=== PATIENT | male | born 1955 | race African-American/Black ===

== ENCOUNTER → 2017-06-05 | Outpatient (CLI) | payer BC ==
--- NOTE | 2017-06-05 13:38 | KCIC ---
MR of the left knee Indication: Medial left knee pain. Pain in recent months. Technique: The standard multiplanar sequences are obtained. Findings: Medial meniscus: Small tear at the posterior horn of the medial meniscus. Lateral meniscus: Minimal blunting and signal at the body of the lateral meniscus, but no convincing evidence of a lateral meniscal tear. Anterior cruciate ligament: Intact Posterior cruciate ligament: Intact Medial collateral ligament: Intact. Iliotibial band: Intact. Lateral collateral ligament: Intact Posterolateral corner: No internal derangement identified. Extensor mechanism: Intact. Fluid: Small joint effusion. 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 -medial compartment:Intact -lateral compartment: Mild chondromalacia at the posterior lateral tibial plateau. Bones: No significant lesion or acute fracture. Soft tissue: Partially visualized fatty mass within the sartorius muscle, measures 2.1 cm transverse by greater than 3.3 cm cephalocaudal, extending superiorly beyond the [id number] of the study. There are a few internal soft tissue septal likely muscle fibers. As visualized, this is compatible with lipoma. There is mild fluid and edema at the lower aspect of the mass. Impression: 1. Medial meniscal tear. 2. Subtle lateral meniscal signal but no convincing tear identified. 3. 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 4. Partially visualized soft tissue mass in the distal sartorius muscle, most likely a lipoma. Small amount of edema and fluid at its lower aspect may be reactive to the mass. This extends superiorly beyond the [id number], depending on the level of clinical concern for larger mass, MR of the thigh could fully evaluate. Electronically signed by: Bryan Agrawal MD (06/05/2017 1:35 PM) [id number]
== END | disposition home or self-care (01) ==
LOC: KCIC MRI 10:52
PROVIDERS: ATTEND Nurse Practitioner Gerontology
DX: S83.242A Other tear of medial meniscus, current injury, left knee, initial encounter (principal); X58.XXXA Exposure to other specified factors, initial encounter; Y93.89 Activity, other specified; Y92.89 Other specified places as the place of occurrence of the external cause; Y99.8 Other external cause status; M94.262 Chondromalacia, left knee
CPT/HCPCS: 73721

== ENCOUNTER → 2017-06-10 | Day surgery (SDC) | payer BC ==
[~2017-06-10] MED LIST: BUPIVACAINE MPF 0.5% 30 ML VIAL. ONE; DEXAMETHASONE SOD PHOS 20 MG/5 ML VIAL. ONE; DOCU-109 PO; EPINEPHrine VIAL 30 MG/30 ML VIAL ONE; FAMOTIDINE 20 MG/2 ML VIAL ONE; HYDR-971 PO; HYDROcodone/APAP 5/325MG 1 TAB TABLET PO PRN; HYDROmorphone 2 MG/ML VIAL IV PRN; IV RINGERS,LACTATED 1000ML 1,000 ML IV SCH; KETOROLAC 30 MG/ML INJ FOR OR. INJ ONE; LIDOCAINE 1% 20 ML VIAL. ONE; LIDOCAINE 1% PF 2 ML VIAL. ID PRN; LIDOCAINE 2% PF Vial for OR 5 ML VIAL. ONE; MIDAZOLAM HCL/PF 2 MG/2 ML VIAL. ONE; MORPHINE SULFATE 2 MG/ML DISP.SYRIN. IV PRN; ONDA4TAB10 SL; ONDANSETRON PF 4 MG/2 ML VIAL. IV PRN; ONDANSETRON PF 4 MG/2 ML VIAL. ONE; PROCHLORPERAZINE 10 MG/2 ML VIAL. IV PRN; PROPOFOL 20 ML IV ONE; diphenhydrAMINE 50 MG/ML VIAL ONE; fentaNYL PF VIAL 100 MCG/2 ML VIAL IV PRN; fentaNYL PF VIAL 100 MCG/2 ML VIAL ONE
--- NOTE | 2017-06-10 10:25 | DISCH ---
DISCHARGE INSTRUCTIONS Condition on Discharge Condition on Discharge: Stable Activity After Discharge Activity Instructions for Disc: Other ROM activity Other activity instructions: no athletics or impact for 6 weeks Bathing Instructions: Shower-keep dressing dry Weight Bearing Status after Di: As tolerated Diet after Discharge Diet after Discharge: Regular Wound Incision Care Wound/Incision Care: Ice to area for comfort, Keep wound/cast CDI, Change dressing Contacting the DR. after DC Call your doctor for: Concerns you may have Follow-Up Follow up with: Bhavya in 2wks Treatment/Equipment after DC Comment: use crutches for a couple of days if needed MEHDI RODRIGUEZ II, MD Jun 10, 2017 10:25
--- NOTE | 2017-06-10 10:28 | PDOC4 ---
Operative Note Operative Note Date of Procedure: 06/10/17 Surgeon: Keegan Rodriguez Preoperative Diagnosis: Left knee medial meniscus tear Postoperative diagnosis same Procedure performed: Left knee arthroscopic partial medial meniscectomy Tourniquet time: 23 minutes Anesthesia: Gen. Findings: Patient had grade 1 changes of patellofemoral joint No loose bodies Grade 1-2 changes medial femoral condyle from 30-60 Complex undersurface tear of posterior body of medial meniscus Intact cruciate ligaments Soft and fissured lateral tibial plateau cartilage Intact cartilage lateral femoral condyle next Intact lateral meniscus Complications: None Reason for procedure: Reuben is a very pleasant 62-year-old with point tenderness at his medial joint line of his left knee that has been going on for quite some time. He has tried and rehabilitation program, self-directed exercise , anti-inflammatories, and intra-articular injection which gave him only temporary relief. Due to persistent pain in his physical exam and imaging findings, I discussed the risks, benefits, and alternatives to the above surgery and he wished to proceed. Description of procedure: Patient was greeted in the preoperative area by myself for the correct extremity was marked and verified. He was then taken back to the operative suite and his antibiotics were started during transfer. Once in the OR, he was transferred gently supine to the OR table and secured to the bed with all pressure points padded. A nonsterile tourniquet was placed to his left upper thigh after successful induction of a general anesthetic. We had a padded bolster laterally at his hip. We had a padded bar across foot of the bed to maintain his knee in 90 of flexion passively. I then conducted my examination under anesthesia, his knee was stable to varus and valgus and had a negative Mare. No pivot. After this we proceeded prep and drape left lower extremity in her usual sterile fashion and conducted our standard preoperative timeout. The extremity was then exsanguinated with an Esmarch and tourniquet was insufflated to 250 mmHg. I then palpated and marked her surface anatomy and made an incision for my standard anterolateral arthroscopic portal and introduced a blunt arthroscopic trocar into the suprapatellar pouch followed by the camera. I then began my diagnostic arthroscopy with the above-noted findings. Upon entering the medial compartment, used a spinal to localize an anteromedial portal and incised skin in accordance with this. I introduce my probe and continued on with my diagnostic arthroscopy. I inspected his meniscus and noted the tear pattern and probed it. I then debrided the meniscus tear back to stable edges with a combination of shaver and arthroscopic biters at his medial meniscus. I then continued on and inspected his notch as well as placement to [id number] position and inspected his lateral compartment. I then reinspected the gutters as well as I placed the camera in the suprapatellar pouch followed by the shaver performed repeated aspiration maneuvers through the shaver to ensure that accomplished removing all loose debris. I then removed all excess arthroscopic fluid and the arthroscopic instrumentation. The portals were closed with simple interrupted 2-0 nylon. Steri-Strips Xeroform sterile gauze and ABDs were applied followed by an Juan Alberto wrap. Surgery was tolerated well. No complications. At the conclusion of the surgery, he was awakened from anesthesia and transferred gently supine to the recovery room cart. He was taken to the PACU in a stable and x-ray condition. Postoperative plan is weight-bear as tolerated. He will follow up in 2 weeks, sooner should a problem arise KEEGAN RODRIGUEZ II, MD Jun 10, 2017 10:28
[2017-06-10 14:00] VITALS: BP 119/80
== END ==
LOC: SURG 09:55
PROVIDERS: ATTEND Orthopaedic Surgery Sports Medicine
DX: S83.242A Other tear of medial meniscus, current injury, left knee, initial encounter (principal); F17.200 Nicotine dependence, unspecified, uncomplicated; H40.9 Unspecified glaucoma; X58.XXXA Exposure to other specified factors, initial encounter; Y93.89 Activity, other specified; Y92.89 Other specified places as the place of occurrence of the external cause; Y99.8 Other external cause status; Z98.890 Other specified postprocedural states
CPT/HCPCS: 29881; C1782; J0171; J1100; J1200; J1885; J2250; J2405; J2704; J3010; J3490; S0028; J2001

== ENCOUNTER → 2017-10-25 | Outpatient (CLI) | payer BC ==
[2017-10-25] MEDS: GADOBUTROL 10 MMOL/10 ML VIAL IV (10:25)
== END | disposition home or self-care (01) ==
LOC: KCIC MRI 09:03
DX: M22.42 Chondromalacia patellae, left knee (principal); M25.462 Effusion, left knee; R60.0 Localized edema
CPT/HCPCS: 73720; 73721; A9585

== ENCOUNTER → 2017-11-08 | Outpatient (CLI) | payer BC | END | disposition home or self-care (01) | LOC: EKG 14:14 | DX: S83.242A Other tear of medial meniscus, current injury, left knee, initial encounter (principal); X58.XXXA Exposure to other specified factors, initial encounter; Y93.89 Activity, other specified; Y92.89 Other specified places as the place of occurrence of the external cause; Y99.8 Other external cause status | CPT/HCPCS: 93005 ==

== ENCOUNTER → 2018-07-29 | Outpatient (CLI) | payer BC ==
[2017-06-10 14:00] VITALS: BP 119/80
[~2018-07-29] MED LIST changes: -BUPIVACAINE MPF 0.5% 30 ML VIAL. ONE; -DEXAMETHASONE SOD PHOS 20 MG/5 ML VIAL. ONE; -EPINEPHrine VIAL 30 MG/30 ML VIAL ONE; -FAMOTIDINE 20 MG/2 ML VIAL ONE; +HYDR-3164 PO; -HYDR-971 PO; -HYDROcodone/APAP 5/325MG 1 TAB TABLET PO PRN; -HYDROmorphone 2 MG/ML VIAL IV PRN; -IV RINGERS,LACTATED 1000ML 1,000 ML IV SCH; -KETOROLAC 30 MG/ML INJ FOR OR. INJ ONE; -LIDOCAINE 1% 20 ML VIAL. ONE; -LIDOCAINE 1% PF 2 ML VIAL. ID PRN; -LIDOCAINE 2% PF Vial for OR 5 ML VIAL. ONE; -MIDAZOLAM HCL/PF 2 MG/2 ML VIAL. ONE; -MORPHINE SULFATE 2 MG/ML DISP.SYRIN. IV PRN; -ONDANSETRON PF 4 MG/2 ML VIAL. IV PRN; -ONDANSETRON PF 4 MG/2 ML VIAL. ONE; -PROCHLORPERAZINE 10 MG/2 ML VIAL. IV PRN; -PROPOFOL 20 ML IV ONE; -diphenhydrAMINE 50 MG/ML VIAL ONE; -fentaNYL PF VIAL 100 MCG/2 ML VIAL IV PRN; -fentaNYL PF VIAL 100 MCG/2 ML VIAL ONE
[2018-07-29] MEDS: GADOBUTROL 10 MMOL/10 ML VIAL IV ONE (09:04)
--- NOTE | 2018-07-29 09:41 | KCIC ---
Indication: Liver lesion. TECHNIQUE: Axial and coronal T2, axial in and out of phase, axial T1-weighted image sequences obtained without IV contrast. After infusion of 10 mL of contrast, axial T1-weighted images were obtained at multiple intervals. COMPARISON: CT abdomen pelvis from 2009 FINDINGS: Heart is normal in size. No pericardial or pleural effusion. Liver is normal in morphology without evidence of hepatic steatosis. Multiple liver lesions are seen as follows: -1.7 x 1.3 cm high intensity T2/low intensity T1 signal lesion in the segment 2 of the liver demonstrating no enhancement compatible with simple cyst. Other scattered lesions demonstrating similar characteristics are seen. -1.8 x 1.8 cm T2 hyperintense/T1 hypointense lesion demonstrating nodular enhancement and complete internal filling on delayed images compatible with hemangioma. Lesion demonstrating similar characteristics is seen in segment 5 measuring 1.1 x 1.1 cm. Spleen is unenlarged and shows no focal lesion. Intrinsic T1 signal is preserved in the pancreas. No intra or extrahepatic biliary duct dilation. No main pancreatic duct dilation. Adrenal glands demonstrate no nodularity. Simple cyst is seen in the right kidney. No hydronephrosis or suspicious renal lesion. No enlarged retroperitoneal adenopathy. Visualized bowel demonstrates no evidence of obstruction. No enhancing bone lesion. IMPRESSION: Multiple liver lesions compatible with simple cysts and hemangiomas. No follow-up needed. Electronically signed by: Dante Mariano DO (07/29/2018 9:36 AM) [id number]
== END | disposition home or self-care (01) ==
LOC: KCIC MRI 07:33
PROVIDERS: ATTEND Internal Medicine Gastroenterology
DX: K76.9 Liver disease, unspecified (principal)
CPT/HCPCS: 74183; A9585